=== PATIENT | male | born 1960 | race Caucasian/White ===

== ENCOUNTER 2017-09-17 20:34 | Emergency (ER) | payer OTHER ==
[~2017-09-17] VITALS: Ht 182.9 cm; Wt 86.9 kg
[2017-09-17] MEDS ORDERED: COREG25 MG PO (21:07)
[2017-09-17] MEDS ORDERED: AMLODIPINE BESY10 MG PO (21:07)
[2017-09-17] MEDS ORDERED: LIPITOR20 M1 PO (21:08)
[2017-09-17] MEDS ORDERED: DOCUSATE CAL240 MG PO (21:08)
[2017-09-17] MEDS ORDERED: FIBER DIET PO (21:09)
[2017-09-17] MEDS ORDERED: TEGRETOL200 MG PO (21:10)
[2017-09-17 21:24] LABS: HEMATOCRIT 42.2 % (39.0-50.0); HEMOGLOBIN 14.2 g/dl (14.0-18.0); IMMATURE GRANULOCYTES 0.4 % (0.0-1.0); MEAN CELL VOLUME 84.6 fL CALC (80.0-100.0); MEAN CORPUSCULAR HGB 28.5 pG CALC (26.0-32.0); MEAN CORPUSCULAR HGB CONC 33.6 g/L CALC (32.0-36.0); NEUT# 7.75 thou/uL (1.82-7.42); RED BLOOD COUNT 4.99 mill/uL (4.70-6.10); RED CELL DISTRI WIDTH 13.5 % (11.5-15.5)
[2017-09-17 21:39] LABS: ALBUMIN 4.2 g/dL (3.2-5.0); ALKALINE PHOSPHATASE 66 u/l (38-126); ANION GAP 14 (6-22 (CALC)); BILIRUBIN, TOTAL 0.3 mg/dL (0.0-1.4); BUN 13 mg/dL (9-20); BUN/CREATININE RATIO 13 (12-20 (CALC)); CARBON DIOXIDE 27 mmol/l (22-30); CHLORIDE 100 mmol/l (95-108); GFR > 60 ML/MIN (>=60 (CALC)); GFR FOR AFR.AMER. > 60 ML/MIN (>=60 (CALC)); POTASSIUM 4.4 mmol/l (3.5-5.1); SGOT/AST 15 u/l (17-59); SGPT/ALT 36 u/l (21-72); SODIUM 136 mmol/l (137-146)
[2017-09-17] MEDS ORDERED: CLEOCIN300 MG PO (23:16)
[2017-09-17 23:29] VITALS: BP 159/71
== END 2017-09-17 23:33 | disposition home or self-care (01) | DRG 156 ==
LOC: ED 20:34
PROVIDERS: Emergency Medicine
DX: K11.20 Sialoadenitis, unspecified (principal); M47.812 Spondylosis without myelopathy or radiculopathy, cervical region; I10 Essential (primary) hypertension; B19.20 Unspecified viral hepatitis C without hepatic coma; G62.9 Polyneuropathy, unspecified
CPT/HCPCS: Q9967